=== PATIENT | male | born 1970 | race Caucasian/White ===

== ENCOUNTER 2020-11-09 07:57 | Emergency (ER) | payer OTHER ==
[~2020-11-09] VITALS: Ht 165.1 cm; Wt 70.3 kg
[~2020-11-09 07:57] MED LIST: DOXEPIN 50MG CA50 MG GT; NORCO 5-325 TA1 EACH PO; NORFLEX100 MG PO; PENICILLIN VK500 MG PO; PERCOCET 7.5-31 EACH PO; PREDNISONE 10 M10 MG PO; VALIUM5 MG PO; VICODIN 5-5001 EACH PO; VISTARIL; VISTARIL 25 MG25 M1 PO; ZOFRAN 4 MG ORAL4 MG PO; ZYPREXA
[2020-11-09] MEDS ORDERED: HYDROCODON-ACE1 EAC7 PO (08:40)
[2020-11-09] MEDS ORDERED: KEFLEX500 M1 PO (08:40)
[2020-11-09 08:44] VITALS: BP 141/94
== END 2020-11-09 08:45 | disposition home or self-care (01) ==
LOC: M.ERS 07:57
DX: L03.115 Cellulitis of right lower limb (principal); F17.210 Nicotine dependence, cigarettes, uncomplicated; Z86.19 Personal history of other infectious and parasitic diseases; Z91.040 Latex allergy status; Z88.8 Allergy status to other drugs, medicaments and biological substances